=== PATIENT | male | born 1985 | race Caucasian/White ===

== ENCOUNTER 2023-02-17 01:17 | Emergency (ER) | payer MEDICAID ==
[~2023-02-17] VITALS: Ht 172.7 cm; Wt 75.0 kg
[2023-02-17 01:29] VITALS: TEMP 98.9; O2SAT 100
[2023-02-17] MEDS ORDERED: PENICILLIN G BENZATHINE 2,400,000 UNITS/4ML SYR IM ONE (02:30)
[2023-02-17] MEDS ORDERED: DOXYCYCLINE HYCLATE 100MG CAPSULE PO ONE (02:30)
[2023-02-17] MEDS ORDERED: CEFTRIAXONE SODIUM 500 MG/VIAL IM ONE (02:30)
[2023-02-17] MEDS ORDERED: KETOROLAC 30MG/ML VIAL IM ONE (03:00)
[2023-02-17] MEDS ORDERED: DOXY100C5 MT (03:57)
[2023-02-17] MEDS ORDERED: POLY17PO3 MT (03:57)
[2023-02-17 03:59] VITALS: BP 120/87; PULSE 86; RESP 19
== END 2023-02-17 04:31 | disposition home or self-care (01) ==
LOC: ER 01:17
DX: K62.89 Other specified diseases of anus and rectum (principal); K59.00 Constipation, unspecified
CPT/HCPCS: 86592; 86593; 96372; 99284; 86780; J0696; J1885; J0561; Z7610 ×3

== ENCOUNTER 2023-05-26 13:21 | Emergency (ER) | payer MEDICAID ==
[~2023-05-26] VITALS: Ht 172.7 cm; Wt 68.0 kg
[~2023-05-26 13:21] MED LIST: DOXY100C5 MT; POLY17PO3 MT
[2023-05-26 13:24] VITALS: BP 108/78; RESP 20; TEMP 98.7; O2SAT 98
[2023-05-26 13:29] VITALS: PULSE 100
[2023-05-26] MEDS ORDERED: IMOD MT (14:36)
[2023-05-26] MEDS ORDERED: LOPERAMIDE HCL 2MG CAPSULE PO ONE (14:45)
== END 2023-05-26 15:45 | disposition home or self-care (01) ==
LOC: ER 14:10
DX: R19.7 Diarrhea, unspecified (principal)
CPT/HCPCS: 99282

== ENCOUNTER 2023-08-25 20:03 | Emergency (ER) | payer MEDICAID ==
[~2023-08-25] VITALS: Ht 175.3 cm; Wt 72.0 kg
[~2023-08-25 20:03] MED LIST changes: +IMOD MT
[2023-08-25 20:23] VITALS: BP 132/91; RESP 18; TEMP 97.8; O2SAT 100
[2023-08-25 20:24] VITALS: PULSE 95
[2023-08-25] MEDS ORDERED: DOXYCYCLINE HYCLATE 100MG CAPSULE PO ONE (21:15)
[2023-08-25] MEDS ORDERED: CEFTRIAXONE SODIUM 500 MG/VIAL IM ONE (21:15)
[2023-08-25 21:25] LABS: BASOPHILS % 0.6 % (0.0-2.0); EOSINOPHILS % 1.8 % (0.0-5.0); HEMATOCRIT. 43.9 % (42.0-52.0); LYMPHOCYTES % 24.5 % (20.0-50.0); MEAN CORPUSCULAR HEMOGLOBIN 31.1 pg (28.0-32.0); MEAN CORPUSCULAR HGB CONC 34.1 g/dL (31.0-37.0); MEAN CORPUSCULAR VOLUME 91.1 fL (80.0-94.0); MEAN PLATELET VOLUME 8.6 fl (7.4-10.4); MONOCYTES % 10.8 % (2.0-8.0); NEUTROPHILS % 62.3 % (40.0-76.0); PLATELET 298 x1000/uL (130-400); RED BLOOD CELL COUNT 4.82 mill/uL (4.7-6.1); RED CELL DISTRIBUTION WIDTH 13.2 % (11.6-14.6); WHITE BLOOD COUNT 8.8 x1000/uL (4.5-11.0)
[2023-08-25 21:39] LABS: ALANINE AMINOTRANSFERASE 22 IU/L (10-49); ALBUMIN 4.1 g/dL (3.2-4.8); ASPARTATE AMINOTRANSFERASE 20 IU/L (<34); BILIRUBIN TOTAL 0.2 mg/dL (0.1-1.0); CALCIUM 9.1 mg/dL (8.7-10.4); CARBON DIOXIDE 24 mEq/L (21-32); CHLORIDE 104 mEq/L (98-107); CREATININE 0.7 mg/dL (0.6-1.3); GLUCOSE 97 mg/dL (70-105); POTASSIUM 3.6 mEq/L (3.5-5.1); PROTEIN TOTAL 8.9 g/dL (6.0-8.3); SODIUM 135 mEq/L (136-145); UREA NITROGEN BLOOD 10 mg/dL (9-23)
[2023-08-26] MEDS ORDERED: DOXY100T28 MT (00:16)
[2023-08-26] MEDS ORDERED: DOXYCYCLINE HYCLATE 100MG CAPSULE PO NR (00:45)
[2023-08-26] MEDS ORDERED: CEFTRIAXONE SODIUM 500 MG/VIAL IM NR ×2 (00:45)
== END 2023-08-26 00:58 | disposition home or self-care (01) ==
LOC: ER 20:10
DX: R30.0 Dysuria (principal)
CPT/HCPCS: 80053; 85025; 36415; 99283; 96372; J0696; Z7610 ×2

== ENCOUNTER 2024-01-02 10:10 | Emergency (ER) | payer MEDICAID ==
[~2024-01-02] VITALS: Ht 175.3 cm; Wt 82.0 kg
[~2024-01-02 10:10] MED LIST changes: +DOXY100T28 MT
[2024-01-02 10:19] VITALS: O2SAT 98
[2024-01-02] MEDS ORDERED: NYST15PO4 TP (10:49)
[2024-01-02 11:05] VITALS: BP 133/97; PULSE 82; RESP 16; TEMP 98.6
== END 2024-01-02 12:10 | disposition home or self-care (01) ==
LOC: ER 10:10
DX: B37.0 Candidal stomatitis (principal)
CPT/HCPCS: 99283

== ENCOUNTER 2024-02-05 12:48 | Emergency (ER) | payer MEDICAID ==
[~2024-02-05] VITALS: Ht 175.3 cm; Wt 74.0 kg
[~2024-02-05 12:48] MED LIST changes: +NYST15PO4 TP
[2024-02-05 12:58] VITALS: PULSE 89; RESP 18
[2024-02-05 13:04] VITALS: BP 123/92; TEMP 98.7; O2SAT 99
[2024-02-05] MEDS ORDERED: CEPH500C2 MT (13:42)
== END 2024-02-05 14:56 | disposition home or self-care (01) ==
LOC: ER 12:48
DX: L03.012 Cellulitis of left finger (principal); Z98.890 Other specified postprocedural states
CPT/HCPCS: 99283

== ENCOUNTER 2024-03-20 10:49 | Emergency (ER) | payer MEDICAID ==
[~2024-03-20] VITALS: Ht 175.3 cm; Wt 73.0 kg
[~2024-03-20 10:49] MED LIST changes: +CEPH500C2 MT
[2024-03-20 11:05] VITALS: BP 136/88; PULSE 97; RESP 20; TEMP 98.3; O2SAT 97
== END 2024-03-20 13:44 | disposition home or self-care (01) ==
LOC: ER 10:49
DX: R50.9 Fever, unspecified (principal); R09.81 Nasal congestion; R05.9 Cough, unspecified; Z79.899 Other long term (current) drug therapy; Z20.822 Contact with and (suspected) exposure to COVID-19
CPT/HCPCS: 71045; 87426; 87804; 99284

== ENCOUNTER 2024-08-25 06:43 | Emergency (ER) | payer MEDICAID ==
[~2024-08-25] VITALS: Ht 175.3 cm; Wt 73.2 kg
[~2024-08-25 06:43] MED LIST changes: +NYST15PO13 TP; -NYST15PO4 TP
[2024-08-25 06:59] VITALS: O2SAT 98
[2024-08-25] MEDS ORDERED: B50 PO (08:31)
[2024-08-25] MEDS: AZITHROMYCIN 500 MG TABLET PO ONE (08:44)
[2024-08-25 08:45] VITALS: BP 130/87; PULSE 81; RESP 16; TEMP 37.05852; O2SAT 98
== END 2024-08-25 08:18 | disposition home or self-care (01) ==
LOC: ER 06:51
DX: R21 Rash and other nonspecific skin eruption (principal); T50.905A Adverse effect of unspecified drugs, medicaments and biological substances, initial encounter; Z98.890 Other specified postprocedural states; Z79.899 Other long term (current) drug therapy; X58.XXXA Exposure to other specified factors, initial encounter
CPT/HCPCS: 99283

== ENCOUNTER 2024-10-12 09:59 | Emergency (ER) | payer MEDICAID ==
[~2024-10-12] VITALS: Ht 175.3 cm; Wt 75.0 kg
[~2024-10-12 09:59] MED LIST changes: +B50 PO
[2024-10-12 10:10] VITALS: TEMP 36.8; O2SAT 99
[2024-10-12] MEDS ORDERED: DIPHENHYDRAMINE 50MG CAPSULE PO ONE (10:45)
[2024-10-12] MEDS ORDERED: DEXAMETHASONE 1MG TABLET PO ONE (10:45)
[2024-10-12] MEDS: EPINEPHRINE 1:1000 1 MG/ML AMP IM ONE (11:13)
[2024-10-12] MEDS: DIPHENHYDRAMINE 25MG CAPSULE PO NR (11:13)
[2024-10-12] MEDS: FAMOTIDINE 20MG TABLET PO ONE (11:13)
[2024-10-12] MEDS: DEXAMETHASONE 4MG TABLET PO NR (11:13)
[2024-10-12 11:17] LABS: BASOPHILS % 0.8 % (0.0-2.0); EOSINOPHILS % 3.1 % (0.0-5.0); HEMATOCRIT. 43.2 % (42.0-52.0); HEMOGLOBIN. 14.7 g/dL (14.0-18.0); MEAN CORPUSCULAR HEMOGLOBIN 31.7 pg (28.0-32.0); MEAN CORPUSCULAR HGB CONC 33.9 g/dL (31.0-37.0); MEAN CORPUSCULAR VOLUME 93.4 fL (80.0-94.0); MEAN PLATELET VOLUME 8.4 fl (7.4-10.4); MONOCYTES % 8.9 % (2.0-8.0); NEUTROPHILS % 55.2 % (40.0-76.0); PLATELET 292 x1000/uL (130-400); RED BLOOD CELL COUNT 4.63 mill/uL (4.7-6.1); RED CELL DISTRIBUTION WIDTH 12.9 % (11.6-14.6)
[2024-10-12 11:23] LABS: CHLORIDE 108 mEq/L (98-107); POTASSIUM 3.9 mEq/L (3.5-5.1); SODIUM 139 mEq/L (136-145)
[2024-10-12 11:24] LABS: CARBON DIOXIDE 24 mEq/L (21-32)
[2024-10-12 11:29] LABS: CREATININE 0.8 mg/dL (0.6-1.3); GLUCOSE 114 mg/dL (70-105)
[2024-10-12 11:30] LABS: UREA NITROGEN BLOOD 16 mg/dL (9-23)
[2024-10-12 11:31] LABS: ALANINE AMINOTRANSFERASE 19 IU/L (10-49); ASPARTATE AMINOTRANSFERASE 15 IU/L (<34)
[2024-10-12 11:32] LABS: ALBUMIN 4.1 g/dL (3.2-4.8); BILIRUBIN TOTAL 0.2 mg/dL (0.1-1.0); PROTEIN TOTAL 7.8 g/dL (6.0-8.3)
[2024-10-12 16:02] VITALS: BP 126/75; PULSE 75; RESP 20; O2SAT 99
== END 2024-10-12 16:03 | disposition home or self-care (01) ==
LOC: ER 09:59
DX: T78.2XXA Anaphylactic shock, unspecified, initial encounter (principal); T78.3XXA Angioneurotic edema, initial encounter; Y92.89 Other specified places as the place of occurrence of the external cause
CPT/HCPCS: 99291; 80053; 85025; 36415; 96372; J8540; Q0163; J3490

== ENCOUNTER 2025-02-06 09:25 | Emergency (ER) | payer MEDICAID ==
[~2025-02-06] VITALS: Ht 175.3 cm; Wt 65.0 kg
[2025-02-06 09:27] VITALS: O2SAT 100
[2025-02-06] MEDS: FLUORESCEIN SODIUM 1MG/STRIP BOTHEYE ONE (10:15)
[2025-02-06] MEDS: TETRACAINE 0.5% OPHTH DROPS 4ML BOTHEYE ONE (10:28)
[2025-02-06] MEDS: DIPHENHYDRAMINE 25MG CAPSULE PO ONE (10:34)
[2025-02-06] MEDS ORDERED: LORA10TA7 MT (11:35)
[2025-02-06] MEDS ORDERED: IBUP-2029 MT (11:35)
[2025-02-06] MEDS ORDERED: KETO-98 EACHEYE (11:35)
[2025-02-06 12:19] VITALS: BP 132/88; PULSE 88; RESP 18; TEMP 36.8; O2SAT 98
== END 2025-02-06 12:20 | disposition home or self-care (01) ==
LOC: ER 09:31
DX: H10.13 Acute atopic conjunctivitis, bilateral (principal); Z79.899 Other long term (current) drug therapy
CPT/HCPCS: 99283; Q0163; 99284